=== PATIENT | male | born 2000 | race Caucasian/White ===

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

== ENCOUNTER → 2023-03-05 | Outpatient (CLI) | payer OTHER, SELFPAY ==
[2023-03-05 12:50] LABS: Erythrocyte Sedimentation Rate 2 mm/hr (0-20)
[2023-03-05 12:51] LABS: CRP < 2.90 mg/L (0.0-3.0); Rheumatoid Factor < 10.0 IU/mL (<15)
[2023-03-06 13:08] LABS: CCP IgG Antibodies 0 units (0-19)
[2023-03-06 14:09] LABS: ANTINUCLEAR ANTIBODIES DIRECT Negative (Negative)
== END | disposition home or self-care (01) ==
LOC: BFHLAB 09:04
PROVIDERS: PCP Family Medicine; Referring Provider Family Medicine; Visit Provider Family Medicine
DX: M13.0 Polyarthritis, unspecified (principal)
CPT/HCPCS: 36415; 85652; 86038; 86140; 86200; 86225; 86235; 86431

== ENCOUNTER 2025-02-14 08:35 | Emergency (ER) | payer BC, SELFPAY ==
[2025-02-14 08:35] VITALS: BP 151/72; PULSE 85; RESP 14; TEMP 36.6; O2SAT 99; BMI 21.6
--- NOTE | 2025-02-14 08:52 | ED.VIS.GI ---
HPI HPI - GI History of Present Illness Chief Complaint: Abd Pain Abdominal Pain/Flank Pain Onset: Weeks (2) Context: Gradual Onset Timing: Intermittent Quality: Stabbing Location: RLQ and LLQ Worsened by: Food and Movement Relieved by: Nothing Nausea/Vomiting/Emesis GI Symptom: Negative for Nausea or Vomiting Diarrhea/Melena/Hematochezia GI Symptom: Negative for Diarrhea, Melena or Hematochezia Associated Symptoms Associated Symptoms: Negative for Dysuria, Frequency or Hematuria Narrative Narrative: Patient presents with lower abdominal pain that has been getting worse over the past 2 weeks. Patient states it is gradually gotten worse. Patient states it comes and goes. Patient describes it as stabbing. Patient states that it feels like he is being stabbed with a butter knife. Patient states it is mainly over his lower abdomen. Patient states it does radiate into his lower back. Patient states it is worse with eating and worse with movement. Patient states nothing seems to help with it. Patient denies any nausea or vomiting. Patient states he has a good appetite and is hungry. Patient denies any diarrhea, melena, or hematochezia. Patient denies any urinary complaints. [facility] Medical History (Updated 02/14/25 @ 12:[address] Eugene Sams, DO) Impacted cerumen of both ears Acute otitis externa of both ears Lab test negative for COVID-19 virus Acute maxillary sinusitis, unspecified Home Medications ?Medication ?Instructions ?Recorded ?Last Taken ?Type epinephrine 0.3 mg/0.3 mL 1 injectable IM X1 PRN Anaphylaxis 09/06/18 Unknown History injection, auto-injector (Auvi-Q) ondansetron 8 mg disintegrating 8 mg PO Q8H PRN nausea and 11/21/22 Unknown Rx tablet vomiting #14 tabs dexamethasone 6 mg tablet 6 mg PO DAILY #5 tabs 12/26/22 Unknown Rx levofloxacin 500 mg tablet 500 mg PO DAILY #7 tabs 12/08/23 Unknown Rx nhzffzur-ycummskoq-qnrnhxxta 3.5 4 drp otic (ear) TID #10 mL 12/08/23 Unknown Rx mg-10,000 unit/mL-1 % ear drops,susp Allergy/AdvReac Type Severity Reaction Status Date / Time amoxicillin trihydrate (From Allergy Upset Verified 02/14/25 08:36 Augmentin) Stomach cefdinir (From Omnicef) Allergy Hives Verified 02/14/25 08:36 peanut Allergy Anaphylaxis Verified 02/14/25 08:36 potassium clavulanate (From Allergy Upset Verified 02/14/25 08:36 Augmentin) Stomach Surgical History Hx of tonsillectomy Hx of inguinal herniorrhaphy Social History (Updated 02/14/25 @ 08:[address] Eugene Sams, DO) Smoking Status: Never smoker Electronic Cigarette Use: with nicotine ROS ROS ED Constitutional Constitutional ED: Denies chills or fever(s) Eyes Eyes: Denies blurry vision or change in vision ENT ENT ED: Denies rhinorrhea or sore throat Cardiovascular Cardiovascular: Denies chest pain or palpitations Respiratory/Chest Respiratory/Chest: Denies cough or dyspnea Gastrointestinal Gastrointestinal: Reports abdominal pain; Denies diarrhea, melena, nausea or vomiting Genitourinary Genitourinary ED: Denies dysuria or hematuria Musculoskeletal Musculoskeletal: Reports back pain and neck pain Integumentary Denies abscess or rash Neurologic Neurologic: Denies headache(s) or weakness Allergic/Immunologic Allergic/Immunologic ED: Denies mouth swelling or urticaria EXAM Physical Exam Const Vital Signs: 02/14/25 08:35 02/14/25 10:35 02/14/25 12:00 Temperature 98 F Temperature Source Temporal Pulse Rate 85 64 78 Respiratory Rate 14 14 18 Blood Pressure 151/72 H 122/66 H 117/76 Blood Pressure Mean 98 84 89 Pulse Ox 99 99 98 Oxygen Delivery Method Room Air Room Air Room Air Positive well nourished and well developed General Appearance ED: well developed and NAD HEENT Reports moist mucous membranes normocephalic and atraumatic Neck supple and no JVD Resp normal respiratory effort and clear to auscultation bilaterally Cardio regular rate and regular rhythm GI non-distended Palpation: soft and tender LLQ, RLQ, periumbilical and suprapubic; Negative for guarding or rebound tenderness present Extremity full ROM General Extremety ED: Negative for edema or tenderness General Extremity: Negative for edema Neuro CN's II-XII intact bilaterally, moves all extremities and no sensory deficits noted Sensorium / Orientation: alert Motor Exam: strength 5/5 throughout Psych mental status grossly normal MDM MDM MDM Narrative Medical decision making narrative: Differential diagnosis includes but is not limited to appendicitis, gastroenteritis, diverticulitis, colitis, urinary tract infection, ureteral calculus, and mesenteric adenitis. CBC will be obtained to assess for leukocytosis and anemia. Basic metabolic profile will be obtained to assess for electrolyte abnormality and renal function. Urinalysis will be obtained assess for urinary tract infection and hematuria. CT scan of the abdomen and pelvis will be obtained to assess for appendicitis, diverticulitis, bowel obstruction, perforation, and ureteral calculus. Lab Data Attestation: I reviewed the patient's lab results. Lab results narrative: CBC was reviewed and was within normal limits. Basic metabolic profile was reviewed and was within normal limits. Urinalysis was reviewed. There is no evidence of urinary tract infection or hematuria. Labs: Laboratory Results - last 24 hr 02/14/25 02/14/25 09:10 11:24 WBC 8.1 RBC 4.60 Hgb 14.0 Hct 41.3 MCV 89.8 MCH 30.4 MCHC 33.9 RDW Std Deviation 43.7 RDW Coeff of Sherita 13.3 Plt Count 245 MPV 9.7 Immature Gran % (Auto) 0.200 Neut % (Auto) 60.0 Lymph % (Auto) 32.2 [place] % (Auto) 5.6 Eos % (Auto) 1.4 Baso % (Auto) 0.6 Absolute Neuts (auto) 4.9 Absolute Lymphs (auto) 2.61 Nucleated RBC % 0 Sodium 140 Potassium 3.6 Chloride 104 Carbon Dioxide 21.1 Anion Gap 14 BUN 16 Creatinine 0.94 Estim Creat Clear Calc 115.77 Est GFR (MDRD) Non-Af 117 BUN/Creatinine Ratio 17.0 Glucose 83 Calcium 9.0 Urine Color Yellow Urine Clarity Clear Urine pH 7.0 Ur Specific [place] 1.010 Urine Protein 15 H Urine Glucose (UA) Normal Urine Ketones Negative Urine Occult Blood Negative Urine Nitrite Negative Urine Bilirubin Negative Urine Urobilinogen Normal Ur Leukocyte Esterase Negative Radiography Diagnostic Testing: Clinical Impression(s) from Imaging Studies Abdomen/Pelvis CT 02/14/25 09:30 IMPRESSION: 1. No clear acute findings, noting that the appendix is not identified. No definite inflammation in the region. 2. Slightly heterogeneous appearance of the hepatic parenchyma may be technical. Given distended configuration of the IVC, correlate for possible hypovolemia and with LFTs to exclude hepatitis. 3. Prominent but technically nonenlarged RIGHT lower quadrant mesenteric nodes, nonspecific and potentially reactive. Finding may also be seen in the setting of mesenteric adenitis. 4. Additional description as above. Reading Location: [facility] CT scan of the abdomen pelvis was obtained. There is no right lower quadrant inflammatory changes. The appendix was not visualized. There is some small mesenteric lymph nodes. There is no acute abnormality noted. This was interpreted by the radiologist and was also independently reviewed by myself. Treatment and Re-Evaluation :: Patient was given IV fluids and Zofran. Patient was feeling better on reevaluation. Patient was advised of his findings. Patient was instructed to start with a bland diet and advance as tolerated. Patient was instructed to follow-up with his primary care physician in 5 to 7 days. Patient understood and was agreeable with the plan. All questions were answered. Discharge Plan Triage Chief Complaint: Abd Pain ED Provider: Eugene Sams Dx/Rx/DC Orders Clinical Impression: Abdominal pain, Mesenteric adenitis Instructions: ED Abdominal Pain Unkn Cause Male... Prescriptions: No Action ondansetron 8 mg tablet,disintegrating 8 mg PO Q8H PRN (Reason: nausea and vomiting) Qty: 14 0RF dexamethasone 6 mg tablet 6 mg PO DAILY Qty: 5 0RF levofloxacin 500 mg tablet 500 mg PO DAILY Qty: 7 0RF sagveisi-jjdhbwprz-FY 3.5-10,000-1 mg/mL-unit/mL-% drops,suspension 4 drp otic (ear) TID Qty: 10 0RF Rx Instructions: to both ears for 10 days epinephrine [Auvi-Q] 0.3 MG/0.3 ML auto-injector 1 injectable IM X1 PRN (Reason: Anaphylaxis) Patient Comments: inject 0.3mls NEEDED Primary Care Provider: Pino Garber Referrals: Pino Garber, [Primary Care Provider] - 5-7 Days Print Language: Mauritian Disposition Disposition: Home, Self Care
[2025-02-14] MEDS: Ondansetron 4 MG/2 ML Vial IV (09:09)
[2025-02-14] MEDS: 0.9% Normal Saline (1000mL) 1,000 ML 999 ML IV (09:09)
[2025-02-14 09:19] LABS: Absolute Lymphocyte Count 2.61 X10^3/uL (0.83-4.51); Absolute Neutrophil Count 4.9 X10^3/uL (2.0-7.7); Basophil# 0.05 X10^3/uL; Basophil% 0.6 % (0-1); Eosinophil# 0.11 X10^3/uL; Eosinophils% 1.4 % (0-5); Hematocrit 41.3 % (40-54); Lymphocyte # 2.61 X10^3/ul (0.83-4.51); Lymphocyte % 32.2 % (19-41); Mean Corp Hgb Conc 33.9 g/dL (32-36); Mean Corpuscular Hgb 30.4 pg (27.0-32.0); Mean Corpuscular Volume 89.8 fL (80-94); Mean Platelet Vol. 9.7 fl (6.2-12.0); Monocyte# 0.45 X10^3/uL; Monocyte% 5.6 % (0-10); NRBC Flagged by Analyzer 0 % (0-5); Neutrophil # 4.86 X10^3/uL (2.7-7.7); Platelet Count 245 K/mm3 (150-450); RBC Distribution Width CV 13.3 % (11.6-14.6); RBC Distribution Width SD 43.7 fl (35.1-43.9); White Blood Count 8.1 K/mm3 (4.4-11.0)
--- NOTE | 2025-02-14 09:30 | CT_ITS ---
PROCEDURE: ABDOMEN/PELVIS W IV CONT ONLY 02/14/2025 REASON FOR EXAM: ABDOMINAL PAIN TECHNIQUE: CT abdomen and pelvis was performed with IV contrast. Multiplanar reformats were generated.. PATIENT PREPARATION: Per protocol ORAL CONTRAST TYPE: None. AMOUNT: CONTRAST: Isovue-300 VOLUME: 97 mL One or more dose reduction techniques were used (e.g., Automated exposure control, adjustment of the mA and/or kV according to patient size, use of iterative reconstruction technique. RADIATION DOSE SUMMARY: CTDlvol: 13.3+ 6.42 mGy DLP: 347.45 mGycm COMPARISON: None FINDINGS: Note that the exam is slightly limited by late arterial phase of contrast timing with unopacified hepatic veins. Lung bases: Unremarkable. Liver: Tiny hypodensity in the RIGHT lobe too small to characterize, likely cyst or hemangioma in the absence of known malignancy.. Slightly heterogeneous appearance of the hepatic parenchyma could be related to the phase of contrast. Spleen: Unremarkable. Gallbladder: Unremarkable. Pancreas: Unremarkable. Adrenals: Unremarkable. Kidneys: Difficult to trace portions of the ureters. No hydronephrosis or definite ureteral calculus identified.. Bowel: Unremarkable. Appendix is not identified. No definite inflammation in the region. Lymph nodes: Prominent RIGHT lower quadrant mesenteric nodes up to 8 mm short axis.. Vasculature: Unremarkable. Distention of the IVC noted. Peritoneum: Unremarkable. Bladder: Unremarkable. Reproductive Organs: Unremarkable. Body Wall: Unremarkable. Bones: Mild thoracolumbar levoscoliosis may be positional.. CT/Abdomen/Pelvis W IV Cont ONLY IMPRESSION: 1. No clear acute findings, noting that the appendix is not identified. No defi nite inflammation in the region. 2. Slightly heterogeneous appearance of the hepatic parenchyma may be technical . Given distended configuration of the IVC, correlate for possible hypovolemia and with LFTs to exclude hepatitis. 3. Prominent but technically nonenlarged RIGHT lower quadrant mesenteric nodes, nonspecific and potentially reactive. Finding may also be seen in the setting of mesenteric adenitis. 4. Additional description as above. Reading Location: [id number]
[2025-02-14 10:35] VITALS: BP 122/66; PULSE 64; RESP 14; O2SAT 99
[2025-02-14 11:10] LABS: Anion Gap 14 (5-15); BUN 16 mg/dL (4-19); Carbon Dioxide 21.1 mmol/L (21.0-32.0); Chloride 104 mmol/L (98-108); Creatinine, Serum 0.94 mg/dL (0.70-1.20); EST Glomerular Filtration Rate 117 (>60); Estimated Creatinine Clearance 115.77 ml/min (50-250); Glucose 83 mg/dL (70-99); Potassium 3.6 mmol/L (3.3-5.1); Sodium Level 140 mmol/L (133-145)
[2025-02-14 11:29] LABS: Bacteria 0 SEEN /hpf (None Seen); Mucous, Urine 0 SEEN /hpf (<or=2+); Red Blood Cells-Urine 0 SEEN /hpf (0-5); Squamous Epithelial Cells - UA 0 SEEN /hpf (0-5); White Blood Cells 0 SEEN /hpf (0-5)
[2025-02-14 12:00] VITALS: BP 117/76; PULSE 78; RESP 18; O2SAT 98
[2025-02-14 12:30] LABS: Color, Urine Yellow (Yellow); Glucose, Dipstick Normal (Normal); Ketone-Dipstick Negative (Negative); Leukocyte Esterase-Dipstick Negative /ul (Negative); Nitrite-Dipstick Negative (Negative); Occult Blood-Urine Negative /ul (Negative); Protein-Dipstick 15 mg/dl (Negative); Urine Bilirubin Dipstick Negative (Negative); Urine Clarity Clear (Clear); Urine Urobilinogen Normal (Normal)
[2025-02-14 12:51] VITALS: BP 124/71; PULSE 74; RESP 18; TEMP 36.8; O2SAT 99
== END 2025-02-14 12:52 | disposition home or self-care (01) ==
PROVIDERS: Emergency Provider Emergency Medicine; PCP Family Medicine; Visit Provider Emergency Medicine
DX: I88.0 Nonspecific mesenteric lymphadenitis (principal); F17.290 Nicotine dependence, other tobacco product, uncomplicated; Z88.0 Allergy status to penicillin
CPT/HCPCS: 74177; 80048; 81001; 85025; 96361; 96374; 99283; Q9967; A4216; J2405

== ENCOUNTER → 2025-03-09 | Outpatient (CLI) | payer BC, SELFPAY ==
[2025-03-09 10:31] LABS: Absolute Lymphocyte Count 2.66 X10^3/uL (0.83-4.51); Absolute Neutrophil Count 3.9 X10^3/uL (2.0-7.7); Basophil# 0.04 X10^3/uL; Basophil% 0.6 % (0-1); Eosinophil# 0.15 X10^3/uL; Eosinophils% 2.1 % (0-5); Hematocrit 40.8 % (40-54); Hemoglobin 13.7 g/dL (13.0-16.5); Lymphocyte # 2.66 X10^3/ul (0.83-4.51); Lymphocyte % 36.6 % (19-41); Mean Corp Hgb Conc 33.6 g/dL (32-36); Mean Corpuscular Volume 89.5 fL (80-94); Mean Platelet Vol. 9.9 fl (6.2-12.0); Monocyte# 0.46 X10^3/uL; Monocyte% 6.3 % (0-10); NRBC Flagged by Analyzer 0 % (0-5); Neutrophil # 3.93 X10^3/uL (2.7-7.7); Neutrophil % 54.1 % (47-70); Platelet Count 225 K/mm3 (150-450); RBC Distribution Width CV 13.2 % (11.6-14.6); RBC Distribution Width SD 42.8 fl (35.1-43.9); Red Blood Count 4.56 M/mm3 (4.6-6.2); White Blood Count 7.3 K/mm3 (4.4-11.0)
[2025-03-09 11:14] LABS: AST(SGOT) 20 U/L (<=37); Alanine Aminotransfer ALT/SGPT 17 U/L (<=46); Albumin, Serum 4.5 g/dL (3.5-5.0); Alkaline Phosphatase 62 U/L (40-129); Anion Gap 12 (5-15); BUN 19 mg/dL (4-19); BUN/Creat Ratio 18.3 RATIO (10-20); Calcium,Total 9.7 mg/dL (7.6-11.0); Carbon Dioxide 23.7 mmol/L (21.0-32.0); Chloride 103 mmol/L (98-108); Creatinine, Serum 1.05 mg/dL (0.70-1.20); EST Glomerular Filtration Rate 103 (>60); Globulin 2.2 g/dL (2.2-4.2); Glucose 84 mg/dL (70-99); Potassium 3.9 mmol/L (3.3-5.1); Protein, Total 6.8 g/dL (5.9-8.4); Sodium Level 139 mmol/L (133-145); Total Bilirubin 0.52 mg/dL (0.00-1.30)
== END | disposition home or self-care (01) ==
PROVIDERS: PCP Family Medicine; Referring Provider Student in an Organized Health Care Education/Training Program; Visit Provider Student in an Organized Health Care Education/Training Program
DX: K58.9 Irritable bowel syndrome, unspecified (principal); R10.9 Unspecified abdominal pain
CPT/HCPCS: 36415; 80053; 82653; 83993; 85025; 87177; 87209; 87329; 87506